=== PATIENT | male | born 1985 | race Caucasian/White ===

== ENCOUNTER 2021-11-15 19:08 | Emergency (ER) | payer OTHER ==
--- NOTE | 2021-11-15 19:37 | ED ---
General Adult HPI - General Chief complaint: Overdose Stated complaint: Overdose Time Seen by Provider: 11/15/21 19:25 Source: patient, EMS, RN notes reviewed, old records reviewed Mode of arrival: EMS Limitations: no limitations - History of Present Illness Initial comments: 36-year-old male presents to the emergency room via EMS after overdose. Patient was found unresponsive given 2 mg of Narcan IV. Patient is alert at this time. He will not answer any questions. When asked if he overdosed on heroin he states "I don't recall". When asked if patient does heroin he would not answer. Patient denies any pain. He is following commands, moving all extremities. Severity scale (1-10): 0 Consistency: now resolved Associated Symptoms: denies other symptoms Treatments Prior to Arrival: other (iv narcan) - Related Data Allergies Allergy/AdvReac Type Severity Reaction Status Date / Time No Known Allergies Allergy Verified 11/15/21 19:18 Review of Systems ROS Statement: Those systems with pertinent positive or pertinent negative responses have been documented in the HPI. ROS Other: All systems not noted in ROS Statement are negative. Past Medical History Past Medical History: Unable to Obtain History of Any Multi-Drug Resistant Organisms: None Reported Past Surgical History: Unable to Obtain Past Psychological History: ADD/ADHD Smoking Status: Current every day smoker Past Alcohol Use History: None Reported Past Drug Use History: Marijuana General Exam Limitations: no limitations General appearance: alert, in no apparent distress Head exam: Present: atraumatic, normocephalic, normal inspection Eye exam: Present: normal appearance. Absent: scleral icterus, conjunctival injection, periorbital swelling, periorbital tenderness Pupils: Present: miosis ENT exam: Present: normal exam, normal oropharynx, mucous membranes moist Neck exam: Present: normal inspection, full ROM. Absent: tenderness, meningismus, lymphadenopathy, thyromegaly Respiratory exam: Present: normal lung sounds bilaterally. Absent: respiratory distress, wheezes, rales, rhonchi, stridor, chest wall tenderness, accessory muscle use, decreased breath sounds Cardiovascular Exam: Present: regular rate, normal rhythm, normal heart sounds. Absent: systolic murmur, diastolic murmur, rubs, gallop, clicks, JVD GI/Abdominal exam: Present: soft, normal bowel sounds. Absent: distended, tenderness, guarding, rebound, rigid Extremities exam: Present: normal inspection, full ROM, normal capillary refill. Absent: tenderness, pedal edema, joint swelling, calf tenderness Back exam: Present: normal inspection, full ROM. Absent: tenderness, CVA tenderness (R), CVA tenderness (L), rash noted Neurological exam: Present: alert, oriented X3 Psychiatric exam: Present: normal affect, normal mood Skin exam: Present: warm, dry, intact, normal color. Absent: rash, cyanosis, diaphoretic, erythema, petechiae, pallor, mottled Course Vital Signs 11/15/21 11/15/21 11/15/21 19:11 19:42 21:54 Temperature 97.8 F 97.9 F Pulse Rate 65 98 Respiratory 18 18 12 Rate Blood Pressure 148/111 155/88 O2 Sat by Pulse 100 98 Oximetry 11/15/21 11/15/21 22:34 23:00 Temperature 97.9 F 98.2 F Pulse Rate 67 88 Respiratory 14 16 Rate Blood Pressure 115/84 133/60 O2 Sat by Pulse 95 96 Oximetry Medical Decision Making - Medical Decision Making 36-year-old male patient presents to the emergency room by EMS after suspected heroin overdose. Patient awoke with IV Narcan given by EMS. He arrived in the emergency room awake and alert with nausea and vomiting. He has been observed in the emergency room for several hours and he is ambulating in the hallway with a steady gait, vital signs are stable. He'll be discharged home and directed to seek counseling for drug abuse. Disposition Clinical Impression: Accidental drug overdose Disposition: HOME SELF-CARE Condition: Good Instructions (If sedation given, give patient instructions): Adult Overdose (ED) Additional Instructions: Please get assistance for drug abuse. Always have Narcan available to you. Return to the emergency room with any new or worsening symptoms. Is patient prescribed a controlled substance at d/c from ED?: No Referrals: None,Stated [Primary Care Provider] - 1-2 days Time of Disposition: 23:07
[2021-11-15] MEDS ORDERED: NALOXONE 0.4 MG/ML 1 ML VIAL IVP STA (21:33)
[2021-11-15 23:01] VITALS: BP 133/60; PULSE 88; RESP 16; TEMP 98.2
== END 2021-11-15 23:26 | disposition home or self-care (01) ==
LOC: EC 19:08
DX: T50.901A Poisoning by unspecified drugs, medicaments and biological substances, accidental (unintentional), initial encounter (principal); F17.200 Nicotine dependence, unspecified, uncomplicated; F12.90 Cannabis use, unspecified, uncomplicated
CPT/HCPCS: 99284; 96374; J2310